=== PATIENT | female | born 1930 | race Caucasian/White ===

== ENCOUNTER 2020-02-19 13:09 | Emergency (ER) | payer OTHER, MEDICAID ==
[~2020-02-19] VITALS: Ht 162.6 cm; Wt 68.0 kg
[~2020-02-19 13:09] MED LIST: LISI5TAB PO; SIMV40TA5 PO
[2020-02-19 13:17] VITALS: BP_SYST 144
--- NOTE | 2020-02-19 13:21 | NUR ---
Patient to ER bed 8 to gown for evaluation. Side rails up. Report given to [facility].
--- NOTE | 2020-02-19 13:22 | NUR ---
ER at bedside examining patient.
[2020-02-19] MEDS ORDERED: NACL 0.9% 1,000 ML IV ONE (13:23)
[2020-02-19] MEDS ORDERED: KETOROLAC TROMETHAMINE 30 MG VIAL IVP ONE (13:30)
--- NOTE | 2020-02-19 13:34 | NUR ---
PATIENT PRESENTS TO THE ER WITH TWO DAY HX OF LEFT SHOULDER PAIN; NO TRAUMA, NO OTHER REMARKABLE S/S; FULL DISTAL N/C/R IS INTACT
--- NOTE | 2020-02-19 13:48 | NUR ---
PATIENT PLACED ON HOLLOW TILE PARTITION ERECTOR; SAO2, ABP; IV PLACED #22 RIGHT WRIST WITHOUT INCIDENT
[2020-02-19 13:59] LABS: BASOPHILS % (AUTO) 0.5 % (0.0-2.0); EOSINOPHILS # (AUTO) 0.1 K/uL (0.0-0.4); EOSINOPHILS % (AUTO) 0.7 % (0.0-4.0); HEMATOCRIT 39.4 % (36-48); HEMOGLOBIN 12.8 g/dL (12.0-16.0); LYMPHOCYTES # (AUTO) 1.5 K/uL (1.0-5.5); LYMPHOCYTES % (AUTO) 17.3 % (20.5-51.5); MEAN CORPUSCULAR HEMOGLOBIN 29 pg (27-31); MEAN CORPUSCULAR HGB CONC 33 % (32-36); MEAN CORPUSCULAR VOLUME 90 fL (79.0-98.0); MONOCYTES # (AUTO) 0.5 K/uL (0.0-1.0); MONOCYTES % (AUTO) 5.4 % (1.7-9.3); NEUTROPHILS # (AUTO) 6.7 K/uL (1.8-7.7); NEUTROPHILS % (AUTO) 76.1 % (40.0-70.0); PLATELET COUNT (AUTO) 124 K/uL (130-430); RED CELL DISTRIBUTION WIDTH 13.9 % (9.0-15.0); WHITE BLOOD COUNT (AUTO) 8.8 K/uL (4.8-10.8)
[2020-02-19 14:02] LABS: BILIRUBIN,URINE NEGATIVE (NEGATIVE); CLARITY/URINE CLEAR (CLEAR); COLOR,URINE YELLOW (YELLOW); GLUCOSE,URINE NEGATIVE (NEGATIVE); KETONES,URINE NEGATIVE (NEGATIVE); LEUKOCYTE ESTERASE ,URINE NEGATIVE (NEGATIVE); NITRITE, URINE NEGATIVE (NEGATIVE); PROTEIN URINE NEGATIVE (NEGATIVE); UROBILINOGEN,URINE 0.2 (0.2-1.0)
[2020-02-19 14:06] LABS: ANION GAP 9 (5-15); CHLORIDE 100 mmol/L (98-107); GLUCOSE 123 mg/dL (70-99); POTASSIUM 3.9 mmol/L (3.5-5.1); SODIUM SERUM 138 mmol/L (136-145); UREA NITROGEN, BLOOD 21 mg/dL (8-21)
[2020-02-19 14:07] LABS: PROTHROMBIN TIME 10.1 SECS (9.5-12.5)
[2020-02-19 14:10] LABS: BLOOD, URINE TRACE (NEGATIVE)
[2020-02-19 14:15] LABS: BACTERIA,URINE FEW /HPF (None Seen); RBC,URINE 0-3 /HPF (0-3); WBC,URINE 0-3 /HPF (0-3)
[2020-02-19 14:21] LABS: ALANINE AMINOTRANSFERASE 29 U/L (12-78); ALBUMIN 3.5 g/dL (3.4-4.8); AMYLASE 81 U/L (0-100); ASPARTATE AMINOTRANSFERASE 27 U/L (10-37); LIPASE 123 U/L (73-393); TOTAL BILIRUBIN 0.5 mg/dL (0.0-1.0)
--- NOTE | 2020-02-19 14:28 | NUR ---
REASSESSMENT; PATIENT STATES NO IMPROVEMENT IN SYMPTOMS, ERMD EVALUATION; ORDERS EXECUTED
[2020-02-19] MEDS ORDERED: MORPHINE 2 MG/ML INJ. SYRINGE IVP ONE (14:30)
--- NOTE | 2020-02-19 14:47 | NUR ---
REASSESSMENT; PATIENT STATES HER SYMPTOMS ARE RESOLVED; DISPOSITION PENDING
[2020-02-19 15:04] VITALS: BP_SYST 128
--- NOTE | 2020-02-19 15:06 | NUR ---
Patient given written and verbal discharge instructions and verbalizes understanding. ER MD discussed with patient the results and treatment provided. Patient in stable condition. ID arm band removed. IV catheter removed intact and dressing applied, no active bleeding. Rx of NAPROSYN given. Patient educated on pain management and to follow up with PMD. Pain Scale . Opportunity for questions provided and answered. Medication side effect fact sheet provided.
--- NOTE | 2020-02-19 15:07 | NUR ---
SLING (LEFT) PLACED PER ERMD (VERBAL ORDER)
== END 2020-02-19 15:04 | disposition home or self-care (01) ==
LOC: SED 13:09
DX: M19.012 Primary osteoarthritis, left shoulder (principal); I10 Essential (primary) hypertension; R07.89 Other chest pain; E78.00 Pure hypercholesterolemia, unspecified; Z96.89 Presence of other specified functional implants
CPT/HCPCS: 36415; 71045; 73030; 80053; 81000; 82150; 82550; 83605; 83690; 83880; 84484; 85025; 85610; 85730; 87040; 87086; 93005; 96374; 96375; 99285; J1885; J2270